=== PATIENT | male | born 1955 | race African-American/Black ===

== ENCOUNTER → 2016-11-19 | Outpatient (CLI) | payer BC ==
[~2016-11-19] MED LIST: ALBUTEROL SULFAT3 M3 IH; ALBUTEROL SULFAT8 MG; ALBUTEROL0.09 MG/A3 IH; ASPIRIN 32325 MG/TAB PO; ASPIRIN E.C. 8181 MG PO; BUDESONIDE1 POW; CETIRIZINE5 MG PO; COMBIVENT INH14.7 GM IH; DIOVAN HCT 12.51 TA2 PO; DIOVAN80 MG PO; DULERA1 AR1 IH; FORADIL; FORADIL AERO0.012 MG IH; FORTAMET500 MG PO; GLUCOPHAGE500 MG/TAB PO; HCTZ PO; KLOR-CON 1010 MEQ PO; KLOR-CON M2020 MEQ PO; NITROSTAT0.4 MG/TAB SL; NORVASC; NORVASC 10MG10 MG PO; PLAVIX 75MG TAB75 MG PO; PRAVACHOL 20MG20 MG PO; PREDNISONE10 MG PO; PRIL40 PO; PRILOSEC 20MG20 MG PO; PULMICORT180 MCG/A1 IH; ZOCOR40 MG PO
[2016-11-19 16:55] LABS: PH 5 (5-8); SQUAMOUS EPITHELIAL None Seen /hpf; URINE APPEARANCE Clear; URINE BACTERIA Rare /hpf; URINE BILIRUBIN Negative (NEGATIVE); URINE BLOOD 2+ (NEGATIVE); URINE COLOR Yellow; URINE GLUCOSE Negative (NEGATIVE); URINE KETONE Negative (NEGATIVE); URINE UROBILINOGEN Negative (NEGATIVE); URINE WBC 0-2 /hpf
== END ==
LOC: COL.LAB 15:36
PROVIDERS: Internal Medicine
DX: N30.00 Acute cystitis without hematuria (principal)
CPT/HCPCS: G0103

== ENCOUNTER → 2017-01-04 | Outpatient (CLI) | payer BC | LOC: COL.RAD 10:30 | DX: N28.1 Cyst of kidney, acquired (principal); N40.0 Benign prostatic hyperplasia without lower urinary tract symptoms | CPT/HCPCS: Q9967 ==

== ENCOUNTER → 2017-03-09 | Outpatient (CLI) | payer BC | LOC: COL.RAD 08:43 | DX: C61 Malignant neoplasm of prostate (principal); S22.32XA Fracture of one rib, left side, initial encounter for closed fracture | CPT/HCPCS: A9503 ==

== ENCOUNTER 2017-04-01 16:31 | Inpatient (IN) | payer BC ==
[~2017-04-01] VITALS: Ht 165.1 cm; Wt 57.8 kg
[~2017-04-01 16:31] MED LIST changes: -DIOVAN HCT 12.51 TA2 PO; -DULERA1 AR1 IH; -GLUCOPHAGE500 MG/TAB PO; -KLOR-CON M2020 MEQ PO; -NITROSTAT0.4 MG/TAB SL; -PRAVACHOL 20MG20 MG PO; -PRIL40 PO
[2017-04-28] VITALS (11 sets, daily range): BP systolic 90–154; BP diastolic 38–84; PULSE 54–86; TEMP 97.4–98.4
[2017-04-28] MEDS ORDERED: NORVASC 10MG10 MG PO (06:56)
[2017-04-28] MEDS ORDERED: PRAVACHOL 20MG20 MG PO (06:57)
[2017-04-28] MEDS ORDERED: DULERA1 AR1 IH (06:57)
[2017-04-28] MEDS ORDERED: KLOR-CON M2020 MEQ PO (07:10)
[2017-04-28] MEDS ORDERED: GLUCOPHAGE500 MG/TAB PO (07:10)
[2017-04-28] MEDS ORDERED: DIOVAN HCT 12.51 TA2 PO (07:10)
[2017-04-28] MEDS ORDERED: ASPIRIN E.C. 8181 MG PO (07:11)
[2017-04-28] MEDS ORDERED: PRIL40 PO (07:11)
[2017-04-28] MEDS ORDERED: NITROSTAT0.4 MG/TAB SL (07:11)
[2017-04-28 15:43] LABS: BASO % 0.1 % (0.0-2.0); EOS % 0.1 % (0-4.0); GRAN # 8.6 (1.4-6.5); GRAN % 85.6 % (42.2-75.2); HEMATOCRIT 32.5 % (42.0-52.0); HEMOGLOBIN 10.5 g/dl (13.5-18.0); LYMPH # 0.7 (1.2-3.4); LYMPH % 7.4 % (20.0-51.0); MEAN CELL VOLUME 92 fl (80.0-100.0); MEAN CORPUSCULAR HEMOGLOBIN 30 pg (27.0-31.0); MEAN CORPUSCULAR HGB CONC 32 g/dl (33.0-37.0); MONO # 0.7 (0.1-0.6); MONO % 6.7 % (1.7-9.3); PLATELET COUNT 184 K/mm3 (130-400); RED BLOOD COUNT 3.53 M/mm3 (4.20-5.60); REDCELL DISTRIBUTION WIDTH-CV 14.9 % (11.5-14.5)
[2017-04-28 16:05] LABS: CALCIUM 7.7 mg/dL (8.4-10.2); CREATININE, serum 1.28 mg/dL (0.66-1.25); POTASSIUM 3.9 mmol/L (3.4-5.0)
[2017-04-29 02:02] VITALS: BP 121/66; PULSE 72; TEMP 97.4
[2017-04-29 04:40] VITALS: BP 134/68; PULSE 84; TEMP 99.1
[2017-04-29 07:24] LABS: BASO % 0.2 % (0.0-2.0); GRAN # 8.7 (1.4-6.5); LYMPH # 0.8 (1.2-3.4); LYMPH % 8.1 % (20.0-51.0); MEAN CELL VOLUME 90 fl (80.0-100.0); MEAN CORPUSCULAR HGB CONC 33 g/dl (33.0-37.0); MONO # 0.6 (0.1-0.6); MONO % 5.5 % (1.7-9.3); PLATELET COUNT 129 K/mm3 (130-400); WHITE BLOOD COUNT 10.1 K/mm3 (4.8-10.8)
[2017-04-29 07:27] LABS: HEMOGLOBIN 9.2 g/dl (13.5-18.0); MEAN CORPUSCULAR HEMOGLOBIN 30 pg (27.0-31.0)
[2017-04-29 07:40] LABS: CALCIUM 7.4 mg/dL (8.4-10.2); CREATININE, serum 1.15 mg/dL (0.66-1.25); POTASSIUM 3.7 mmol/L (3.4-5.0)
[2017-04-29 09:23] VITALS: BP 151/66; PULSE 95; TEMP 99.7
[2017-04-29 14:02] VITALS: BP 141/69; PULSE 77; TEMP 99
[2017-04-29 17:58] VITALS: BP 122/64; PULSE 80; TEMP 98.4
[2017-04-29 21:29] VITALS: BP 134/61; PULSE 77; TEMP 98.5
[2017-04-30 01:09] VITALS: BP 136/70; PULSE 92; TEMP 99.1
[2017-04-30 05:29] VITALS: BP 138/68; PULSE 86; TEMP 99
[2017-04-30 09:39] VITALS: BP 126/53; PULSE 96; TEMP 99.1
[2017-04-30 10:29] LABS: MEAN CELL VOLUME 91 fl (80.0-100.0); MEAN CORPUSCULAR HGB CONC 32 g/dl (33.0-37.0); MEAN PLATELET VOLUME 13.9 fl (7.4-10.4); PLATELET COUNT 122 K/mm3 (130-400); RED BLOOD COUNT 2.62 M/mm3 (4.20-5.60); REDCELL DISTRIBUTION WIDTH-CV 15.2 % (11.5-14.5); WHITE BLOOD COUNT 7.2 K/mm3 (4.8-10.8)
[2017-04-30 10:30] LABS: ADD PATHOLOGY DIFF REVIEW NO; HEMATOCRIT 23.9 % (42.0-52.0); HEMOGLOBIN 7.7 g/dl (13.5-18.0); MEAN CORPUSCULAR HEMOGLOBIN 29 pg (27.0-31.0)
[2017-04-30 10:47] LABS: BAND 13 % (0-10); EOSINOPHIL 3 % (0-4); NEUTROPHILS 69 % (42.0-75.2); PLATELET ESTIMATE DECREASED (NORMAL); TOTAL CELLS COUNTED 100
[2017-04-30 14:17] VITALS: BP 129/60; PULSE 98; TEMP 98.9
[2017-04-30 17:41] VITALS: BP 145/68; PULSE 102; TEMP 99
[2017-04-30 22:00] VITALS: BP 138/81; PULSE 105; TEMP 100
[2017-05-01 02:15] VITALS: BP 114/69; BP 124/55; PULSE 106; PULSE 79; TEMP 100.3; TEMP 97.4
[2017-05-01 04:43] VITALS: BP 139/67; PULSE 95; TEMP 99.1
[2017-05-01 10:05] VITALS: BP 139/71; PULSE 107; TEMP 100
[2017-05-01 11:26] LABS: BASO % 0.2 % (0.0-2.0); EOS # 0.2 (0.0-0.7); EOS % 3.5 % (0-4.0); GRAN % 79.2 % (42.2-75.2); LYMPH # 0.7 (1.2-3.4); LYMPH % 11.7 % (20.0-51.0); MEAN CELL VOLUME 91 fl (80.0-100.0); MEAN CORPUSCULAR HGB CONC 33 g/dl (33.0-37.0); MEAN PLATELET VOLUME 12.5 fl (7.4-10.4); MONO # 0.3 (0.1-0.6); MONO % 4.8 % (1.7-9.3); PLATELET COUNT 129 K/mm3 (130-400); RED BLOOD COUNT 2.38 M/mm3 (4.20-5.60); REDCELL DISTRIBUTION WIDTH-CV 14.6 % (11.5-14.5); WHITE BLOOD COUNT 6.3 K/mm3 (4.8-10.8)
[2017-05-01 11:33] LABS: HEMATOCRIT 21.7 % (42.0-52.0); HEMOGLOBIN 7.1 g/dl (13.5-18.0); MEAN CORPUSCULAR HEMOGLOBIN 30 pg (27.0-31.0)
[2017-05-01 14:13] VITALS: BP 136/68; PULSE 99; TEMP 99.4
[2017-05-01 18:08] VITALS: BP 127/81; PULSE 106; TEMP 99.2
[2017-05-01 22:17] VITALS: BP 144/76; PULSE 116; TEMP 99
[2017-05-02] VITALS (11 sets, daily range): BP systolic 126–152; BP diastolic 66–75; PULSE 92–111; TEMP 98–100.5
[2017-05-02 07:34] LABS: MEAN CELL VOLUME 90 fl (80.0-100.0); MEAN CORPUSCULAR HGB CONC 33 g/dl (33.0-37.0); PLATELET COUNT 163 K/mm3 (130-400); RED BLOOD COUNT 2.26 M/mm3 (4.20-5.60); REDCELL DISTRIBUTION WIDTH-CV 14.7 % (11.5-14.5); WHITE BLOOD COUNT 5.3 K/mm3 (4.8-10.8)
[2017-05-02 07:37] LABS: CALCIUM 8.2 mg/dL (8.4-10.2); CREATININE, serum 1.78 mg/dL (0.66-1.25)
[2017-05-02 07:38] LABS: HEMATOCRIT 20.4 % (42.0-52.0); HEMOGLOBIN 6.7 g/dl (13.5-18.0); MEAN CORPUSCULAR HEMOGLOBIN 30 pg (27.0-31.0)
[2017-05-02 07:40] LABS: POTASSIUM 2.9 mmol/L (3.4-5.0)
[2017-05-03 02:51] VITALS: BP 125/68; PULSE 95; TEMP 98.9
[2017-05-03 05:19] VITALS: BP 134/65; PULSE 89; TEMP 98.8
[2017-05-03 07:24] LABS: MEAN CELL VOLUME 91 fl (80.0-100.0); MEAN CORPUSCULAR HGB CONC 34 g/dl (33.0-37.0); MEAN PLATELET VOLUME 10.8 fl (7.4-10.4); PLATELET COUNT 176 K/mm3 (130-400); RED BLOOD COUNT 2.77 M/mm3 (4.20-5.60); REDCELL DISTRIBUTION WIDTH-CV 14.5 % (11.5-14.5); WHITE BLOOD COUNT 6.4 K/mm3 (4.8-10.8)
[2017-05-03 07:25] LABS: HEMATOCRIT 25.2 % (42.0-52.0); HEMOGLOBIN 8.5 g/dl (13.5-18.0); MEAN CORPUSCULAR HEMOGLOBIN 31 pg (27.0-31.0)
[2017-05-03 07:40] LABS: CALCIUM 8.4 mg/dL (8.4-10.2); CREATININE, serum 2.14 mg/dL (0.66-1.25); POTASSIUM 3.5 mmol/L (3.4-5.0)
[2017-05-03 09:28] VITALS: BP 124/71; PULSE 59; TEMP 99
[2017-05-03 14:20] VITALS: BP 138/73; PULSE 95; TEMP 98.2; TEMP 99.7
[2017-05-03 17:43] VITALS: BP 134/69; PULSE 102; TEMP 97.9
[2017-05-03 21:59] VITALS: BP 143/74; PULSE 94; TEMP 98
[2017-05-04 05:45] VITALS: BP 126/72; PULSE 78; TEMP 99.2
[2017-05-04 06:53] LABS: HEMATOCRIT 24.6 % (42.0-52.0); HEMOGLOBIN 8.1 g/dl (13.5-18.0); MEAN CELL VOLUME 90 fl (80.0-100.0); MEAN CORPUSCULAR HEMOGLOBIN 30 pg (27.0-31.0); MEAN CORPUSCULAR HGB CONC 33 g/dl (33.0-37.0); MEAN PLATELET VOLUME 11.3 fl (7.4-10.4); PLATELET COUNT 197 K/mm3 (130-400); RED BLOOD COUNT 2.72 M/mm3 (4.20-5.60); REDCELL DISTRIBUTION WIDTH-CV 14.6 % (11.5-14.5); WHITE BLOOD COUNT 7.4 K/mm3 (4.8-10.8)
[2017-05-04 07:06] LABS: CALCIUM 8.7 mg/dL (8.4-10.2); CREATININE, serum 1.51 mg/dL (0.66-1.25)
[2017-05-04 07:08] LABS: POTASSIUM 2.9 mmol/L (3.4-5.0)
[2017-05-04 09:16] VITALS: BP 128/69; PULSE 95
[2017-05-04 14:02] VITALS: BP 134/76; PULSE 98; TEMP 98.3
[2017-05-04 17:31] VITALS: BP 126/67; PULSE 82; TEMP 98.7
[2017-05-04 21:01] VITALS: BP 124/71; BP 142/71; PULSE 93; TEMP 99.8
[2017-05-05 01:49] VITALS: BP 121/67; PULSE 72; TEMP 98.1
[2017-05-05 06:07] VITALS: BP 130/60; PULSE 85; TEMP 98.6
[2017-05-05 09:56] VITALS: BP 123/59; PULSE 84; TEMP 98.2
[2017-05-05 14:11] VITALS: BP 154/72; PULSE 86
[2017-05-05 18:02] VITALS: BP 124/61; PULSE 80; TEMP 98.5
[2017-05-05 22:51] VITALS: BP 126/70; PULSE 94; TEMP 100.6
[2017-05-06] VITALS (15 sets, daily range): BP systolic 119–152; BP diastolic 62–78; PULSE 66–101; TEMP 97.5–99.5
[2017-05-06 07:36] LABS: CALCIUM 8.6 mg/dL (8.4-10.2); CREATININE, serum 1.01 mg/dL (0.66-1.25); MAGNESIUM 1.8 mg/dL (1.6-2.3); POTASSIUM 3.7 mmol/L (3.4-5.0)
[2017-05-06 14:44] LABS: PH 7 (5-8); SQUAMOUS EPITHELIAL 0-2 /hpf; URINE APPEARANCE Hazy; URINE BACTERIA Rare /hpf; URINE BILIRUBIN Negative (NEGATIVE); URINE BLOOD 3+ (NEGATIVE); URINE COLOR Red; URINE GLUCOSE Negative (NEGATIVE); URINE KETONE Trace (NEGATIVE); URINE RBC >50 /hpf; URINE UROBILINOGEN Negative (NEGATIVE)
[2017-05-06 14:50] LABS: URINE WBC >50 /hpf
[2017-05-07 01:14] VITALS: BP 125/63; PULSE 100; TEMP 98.8
[2017-05-07 04:48] VITALS: BP 126/48; PULSE 94; TEMP 99.1
[2017-05-07 10:27] VITALS: BP 122/57; PULSE 96; TEMP 97.5
[2017-05-07 14:35] VITALS: BP 142/59; PULSE 99; TEMP 99.3
[2017-05-07 18:40] VITALS: BP 133/58; PULSE 93; TEMP 98.3
[2017-05-07 22:00] VITALS: BP 127/67; PULSE 89; TEMP 98.7
[2017-05-08 01:31] VITALS: BP 117/56; PULSE 83; TEMP 99.7
[2017-05-08 06:09] VITALS: BP 127/62; PULSE 83; TEMP 97.6
[2017-05-08 09:04] VITALS: BP 146/88; PULSE 93; TEMP 98.5
[2017-05-08 14:45] VITALS: BP 115/66; PULSE 98; TEMP 99.8
[2017-05-08 18:01] VITALS: BP 145/68; PULSE 92; TEMP 98.6
[2017-05-08 20:38] VITALS: BP 142/81; PULSE 87; TEMP 99.8
[2017-05-09 00:47] VITALS: BP 141/78; PULSE 86; TEMP 99.2
[2017-05-09 04:53] VITALS: BP 119/62; PULSE 88; TEMP 99.8
[2017-05-09 09:12] VITALS: BP 133/67; PULSE 71; TEMP 98.2
[2017-05-09 12:41] VITALS: BP 136/67; PULSE 85; TEMP 98.7
[2017-05-09 17:26] VITALS: BP 126/66; PULSE 75; TEMP 98.8
[2017-05-09 22:02] VITALS: BP 131/65; PULSE 80; TEMP 98.4
[2017-05-10 01:32] VITALS: BP 111/64; PULSE 73; TEMP 98.4
[2017-05-10 05:16] VITALS: BP 90/44; PULSE 71; TEMP 98.5
[2017-05-10 09:30] VITALS: BP 114/70
[2017-05-10 09:40] VITALS: BP 124/54; PULSE 78; TEMP 98.6
[2017-05-10 13:29] VITALS: BP 118/66; PULSE 54; TEMP 99.3
== END 2017-05-10 17:50 | disposition home or self-care (01) | DRG 707 ==
LOC: SURG 04-28 05:35 → INPTSU 04-28 05:35 → SURG 04-28 07:30 → JCC 04-28 14:30 → SURG 05-02 22:50
PROVIDERS: Surgery; Urology
PROC: 07BC4ZX Excision of Pelvis Lymphatic, Percutaneous Endoscopic Approach, Diagnostic (ICD-10-PCS; 2017-04-28)
PROC: 8E0W4CZ Robotic Assisted Procedure of Trunk Region, Percutaneous Endoscopic Approach (ICD-10-PCS; 2017-04-28)
PROC: 0DQP4ZZ Repair Rectum, Percutaneous Endoscopic Approach (ICD-10-PCS; 2017-04-28)
PROC: 0VT04ZZ Resection of Prostate, Percutaneous Endoscopic Approach (ICD-10-PCS; principal; 2017-04-28 07:30)
PROC: 0W9J3ZX Drainage of Pelvic Cavity, Percutaneous Approach, Diagnostic (ICD-10-PCS; 2017-05-06)
DX: C61 Malignant neoplasm of prostate (principal); K91.71 Accidental puncture and laceration of a digestive system organ or structure during a digestive system procedure; K91.3 Postprocedural intestinal obstruction; N99.842 Postprocedural seroma of a genitourinary system organ or structure following a genitourinary system procedure; E11.9 Type 2 diabetes mellitus without complications; I10 Essential (primary) hypertension; J45.909 Unspecified asthma, uncomplicated; Z95.5 Presence of coronary angioplasty implant and graft; K21.9 Gastro-esophageal reflux disease without esophagitis; D50.0 Iron deficiency anemia secondary to blood loss (chronic); E87.6 Hypokalemia
CPT/HCPCS: A9284; C1713; C9113; J0690; J0694; J1100; J1170; J1644; J1885; J1940; J1956; J2250; J2405; J2543; J2704; J2710; J3010; J3480; J7030; J7050; P9016; Q9967

== ENCOUNTER → 2017-05-18 | Outpatient (CLI) | payer BC ==
[~2017-05-18] MED LIST changes: +DIOVAN HCT 12.51 TA2 PO; +DULERA1 AR1 IH; +GLUCOPHAGE500 MG/TAB PO; +KLOR-CON M2020 MEQ PO; +NITROSTAT0.4 MG/TAB SL; +PRAVACHOL 20MG20 MG PO; +PRIL40 PO
== END ==
LOC: COL.RAD 10:59
DX: N99.71 Accidental puncture and laceration of a genitourinary system organ or structure during a genitourinary system procedure (principal)
CPT/HCPCS: Q9967

== ENCOUNTER → 2017-06-01 | Outpatient (CLI) | payer BC | LOC: COL.RAD 07:33 | DX: N99.71 Accidental puncture and laceration of a genitourinary system organ or structure during a genitourinary system procedure (principal) | CPT/HCPCS: Q9967 ==

== ENCOUNTER → 2017-10-14 | Outpatient (CLI) | payer BC ==
[2017-10-14 11:04] LABS: CALCIUM 9.4 mg/dL (8.4-10.2); CREATININE, serum 0.94 mg/dL (0.66-1.25); MAGNESIUM 1.9 mg/dL (1.6-2.3); POTASSIUM 3.9 mmol/L (3.4-5.0)
[2017-10-14 11:54] LABS: THYROID STIMULATING HORMONE 1.49 uIU/mL (0.465-4.680)
== END ==
LOC: COL.LAB 09:57
PROVIDERS: Internal Medicine
DX: R20.2 Paresthesia of skin (principal)

== ENCOUNTER → 2017-11-17 | Outpatient (CLI) | payer BC | LOC: COL.LAB 13:17 | DX: Z01.89 Encounter for other specified special examinations (principal) ==

== ENCOUNTER → 2017-11-17 | Outpatient (CLI) | payer BC ==
[2017-11-17 23:52] LABS: TESTOSTERONE, TOTAL 683 ng/dL (221-716)
[2017-11-18 11:18] LABS: RPR (VDRL) Non-reactive (())
[2017-11-19 12:48] LABS: LYME DISEASE ANTIBODIES Negative (Negative)
[2017-11-19 13:08] LABS: CADMIUM BLOOD 0.3 ng/mL (0.0-4.9); MERCURY,SERUM 7 ng/mL (0-9)
== END ==
LOC: COL.LAB 09:58
PROVIDERS: Psychiatry & Neurology Neurology
DX: G58.8 Other specified mononeuropathies (principal); R20.2 Paresthesia of skin

== ENCOUNTER → 2018-12-05 | Outpatient (REF) | LOC: ZLAB.WCH 16:07 | DX: Z01.89 Encounter for other specified special examinations (principal) ==

== ENCOUNTER → 2023-03-04 | Outpatient (CLI) | payer MEDICARE ==
[~2023-03-04] MED LIST changes: +NEURONTIN300 MG/CAP PO; +NEURONTIN600 MG/TAB PO; +PROTONIX 40MG T40 MG PO
== END ==
LOC: COL.RAD 13:51
DX: R55 Syncope and collapse (principal)
CPT/HCPCS: A9575

== ENCOUNTER 2024-05-01 16:59 | Inpatient (IN) | payer MEDICARE ==
[2024-05-01] VITALS (87 sets, daily range): BP systolic 126; BP diastolic 92; PULSE 81; TEMP 97.8; O2SAT 91–100
[~2024-05-01] VITALS: Ht 165.1 cm; Wt 54.0 kg
[2024-05-01 17:12] LABS: BASO % 0.3 % (0.0-2.0); EOS # 0.6 K/mm3 (0.0-0.7); EOS % 8.6 % (0.0-4.0); GRAN # 3.4 K/mm3 (1.4-6.5); GRAN % 46.8 % (42.2-75.2); HEMATOCRIT 46.9 % (42.0-52.0); HEMOGLOBIN 14.8 g/dl (13.5-18.0); LYMPH # 2.8 K/mm3 (1.2-3.4); LYMPH % 38.6 % (20.0-51.0); MEAN CELL VOLUME 87 fl (80.0-100.0); MEAN CORPUSCULAR HEMOGLOBIN 28 pg (27-31); MEAN CORPUSCULAR HGB CONC 32 g/dl (33.0-37.0); MEAN PLATELET VOLUME 11.9 fl (7.4-10.4); MONO # 0.4 K/mm3 (0.1-0.6); MONO % 5.6 % (1.7-9.3); PLATELET COUNT 233 K/mm3 (130-400); RED BLOOD COUNT 5.38 M/mm3 (4.20-5.60); REDCELL DISTRIBUTION WIDTH-CV 17.2 % (11.5-14.5)
[2024-05-01] MEDS ORDERED: Albuterol/Ipratropium 3 MG-0.5 MG/3 ML Neb Soln IH ONE (17:15)
[2024-05-01] MEDS ORDERED: Albuterol 0.083% Neb Soln 2.5 MG/3 ML UD IH ONE (17:15)
[2024-05-01 17:26] LABS: ARTERIAL BLD GAS O2 SATURATION 87.2 % (92-100); ARTERIAL BLD GAS TCO2 CT 31.3; ARTERIAL BLOOD GAS BASE EXCESS 2.7 (-2-2); ARTERIAL BLOOD GAS HCO3 29.6 meq/L (22-26); ARTERIAL BLOOD GAS PCO2 54.7 mmHg (35-45); ARTERIAL BLOOD GAS PO2 59.5 mmHg (80-100); ARTERIAL BLOOD GAS pH 7.35 (7.35-7.45)
[2024-05-01 17:29] LABS: ALBUMIN 4.7 g/dL (3.4-4.8); BILIRUBIN,TOTAL 0.5 mg/dL (0.2-1.2); C-REACTIVE PROTEIN 0.18 mg/dL (0.00-0.50); CREATININE, serum 2.49 mg/dL (0.72-1.25); POTASSIUM 4.6 mEq/L (3.5-4.5); TOTAL PROTEIN 9.1 g/dl (6.2-8.1)
[2024-05-01 17:37] LABS: TROPONIN-I 0.019 ng/mL (0.00-0.033)
[2024-05-01 17:51] LABS: URINE APPEARANCE CLEAR (CLEAR/HAZY); URINE BLOOD 2+ (NEGATIVE); URINE COLOR YELLOW (YELLOW); URINE GLUCOSE NEGATIVE (NEGATIVE); URINE KETONE NEGATIVE (NEGATIVE); URINE NITRATE NEGATIVE (NEGATIVE); URINE PROTEIN(semi-quant) 4+ (NEGATIVE); URINE UROBILINOGEN 0.2 E.U/dL (0.2-1.0)
[2024-05-01 18:01] LABS: COLLECTION METHOD CLEAN CATCH
[2024-05-01] MEDS ORDERED: Albuterol/Ipratropium 3 MG-0.5 MG/3 ML Neb Soln IH PRN (18:30)
[2024-05-01] MEDS ORDERED: dexAMETHasone 10 MG/ML VIAL IV ONE (18:30)
[2024-05-01] MEDS ORDERED: cefTRIAXone 1 G in Water For Injection,Sterile 10 ML IV SCH (18:45)
[2024-05-01] MEDS ORDERED: K-DUR20 MEQ PO (18:54)
[2024-05-01] MEDS ORDERED: CRESTOR 10MG10 MG PO (18:54)
[2024-05-01] MEDS ORDERED: DIOVAN/HCT 12.51 TAB PO (18:54)
[2024-05-01] MEDS ORDERED: CYMBALTA 60MG60 MG PO (18:55)
[2024-05-01] MEDS ORDERED: 00186-0370-20 IH (18:55)
[2024-05-01] MEDS ORDERED: PROAIR HFA0.09 MG/AC IH (18:55)
[2024-05-01] MEDS ORDERED: Acetaminophen 325 MG TAB PO PRN (19:00)
[2024-05-01] MEDS ORDERED: Formoterol 20 MCG,Budesonide 0.5 MG IH SCH (19:00)
[2024-05-01] MEDS ORDERED: NS 1,000 ML IV SCH (19:00)
--- NOTE | 2024-05-01 20:15 | NUR ---
PT ARRIVED FROM ED VIA STRETCHER. MOVED TO ICU BED AND CONNECTED TO MONITORING. MOVED OVER ON BIPAP, HOWEVER RT IN ROOM WITH PT AND MOVED TO 4L NC AT THIS TIME SO CELIO CADE APRN CAN COMPLETE ADMISSION (IN ROOM WITH PT). PT TOLERATING O2 VIA NC WELL AND MAINTAINING PULSE OXIMETRY OVER 97%. NOTED WHEEZING TO ALL LUNG CASTILLO, BUT PT DENIES ANY IMMEDIATE DISTRESS.
[2024-05-01] MEDS ORDERED: ANTIVERT 25MG25 MG PO (20:32)
[2024-05-01] MEDS ORDERED: XALATAN EYE DROPS OU (20:32)
[2024-05-01] MEDS ORDERED: Meclizine 25 MG TAB PO PRN (20:45)
[2024-05-01] MEDS ORDERED: Latanoprost 0.005% Ophth Soln 2.5 ML BOTTLE OP SCH (21:00)
[2024-05-01] MEDS ORDERED: Rosuvastatin 10 MG **** subs to Atorvastatin 20 MG PO SCH (21:00)
--- NOTE | 2024-05-01 22:48 | NUR ---
PT RESTING AT THIS TIME ON BIPAP AT 35% FIO2, TOLERATING WELL. REPORTS NO NEEDS OR COMPLAINTS.
[2024-05-02] VITALS (429 sets, daily range): BP systolic 106–166; BP diastolic 76–93; PULSE 77–99; TEMP 97.5–98.4; O2SAT 90–100
[2024-05-02] MEDS ORDERED: Insulin Lispro (HumaLOG) SQ SCH
[2024-05-02 04:52] LABS: EOS % 0.2 % (0.0-4.0); GRAN # 3.9 K/mm3 (1.4-6.5); GRAN % 79.2 % (42.2-75.2); LYMPH % 19.6 % (20.0-51.0); MEAN CELL VOLUME 84 fl (80.0-100.0); MEAN CORPUSCULAR HGB CONC 32 g/dl (33.0-37.0); MEAN PLATELET VOLUME 11.8 fl (7.4-10.4); MONO % 0.8 % (1.7-9.3); PLATELET COUNT 177 K/mm3 (130-400); RED BLOOD COUNT 4.41 M/mm3 (4.20-5.60); REDCELL DISTRIBUTION WIDTH-CV 16.8 % (11.5-14.5)
[2024-05-02 04:55] LABS: HEMATOCRIT 36.9 % (42.0-52.0); HEMOGLOBIN 11.8 g/dl (13.5-18.0); MEAN CORPUSCULAR HEMOGLOBIN 27 pg (27-31)
[2024-05-02 05:05] LABS: CALCIUM 8.5 mg/dL (8.4-10.2); CREATININE, serum 2.49 mg/dL (0.72-1.25); POTASSIUM 4.9 mEq/L (3.5-4.5)
--- NOTE | 2024-05-02 07:00 | NUR ---
REPORT RECEIVED FROM ZO TAYLOR. PT RESTING IN BED, VSS ON ROOM AIR. NS INFUSING TO PERIPHERAL IV ORDERED. PT IS ALERT AND ORIENTED, USES CALL LIGHT FOR NEEDS.
[2024-05-02] MEDS ORDERED: dexAMETHasone 10 MG/ML VIAL IV SCH (08:00)
[2024-05-02] MEDS ORDERED: DULoxetine 60 MG CAP PO SCH (09:00)
[2024-05-02] MEDS ORDERED: Pantoprazole 40 MG in NS 10 ML IV SCH (09:00)
--- NOTE | 2024-05-02 09:05 | NUR ---
pattern layout worker met with pt to discuss discharge planning. He reports to live alone in [place]. He sees Dr. Casper for PCP needs and obtains medications from [facility] with difficulties. He reports to not have a secondary insurance and was interested in medicaid insurance. SW advised she will inform the financial advisors to meet with him. SW informed him to talk with his PCP about coupons/samples and switching his medications to the $4 list. Pt verbalized understanding of this. He reports to be independent with ADLS and uses no DME. He does not have a DPOA-HC, but reports his friend Hamliton [phone] is his contact. Pt informs SW he has a son, Devin Haq in [place] and a sister, Ness Toure in [facility]. He does not have their numbers, but reports his friend, Hamilton can help reach them. Pt reports he will look into the DPOA-HC when SW advised his son was [place]. SW informed him that he can talk with his PCP about this further if he wants to complete it later. He had no further concerns. BRYANT informed Entry Level Sales Associate, Lukas via voicemail to meet with pt regarding medicaid tiki. Marcelino called back and stated she will do this. BRYANT informed ZO Licona of [place] information. Discharge Plan: home
[2024-05-02 09:28] LABS: ARTERIAL BLD GAS O2 SATURATION 92.7 % (92-100); ARTERIAL BLD GAS TCO2 CT 26.9; ARTERIAL BLOOD GAS HCO3 25.8 meq/L (22-26); ARTERIAL BLOOD GAS PCO2 37.4 mmHg (35-45); ARTERIAL BLOOD GAS PO2 62.3 mmHg (80-100); ARTERIAL BLOOD GAS pH 7.46 (7.35-7.45)
--- NOTE | 2024-05-02 12:00 | NUR ---
Pt arrived to medical floor from ICU by wheelchair. Home medications, pharmacy, and allergies reviewed. Pt A&O x4. Assessment completed. Oriented pt to room, call light, and bathroom. Pt has no request at this time. Call light within reach.
--- NOTE | 2024-05-02 13:25 | NUR ---
Data: Patient accepted spiritual care visit while in ICU4 during Dance Choreographer rounds. Assessment: Patient desired prayer. Plan of Care: Dance Choreographer offered a prayer for healing. Patient thanked Dance Choreographer for the prayer. Chaplains will remain available as needed/requested while Patient is admitted to this hospital.
[2024-05-02] MEDS ORDERED: Ipratropium 0.02% Neb Soln 0.5 MG/2.5 ML UD IH SCH (14:00)
--- NOTE | 2024-05-02 15:22 | NUR ---
ordnance equipment worker was informed by Curtain Framer, Marcelino that pt does not qualify for Medicaid.
[2024-05-02] MEDS ORDERED: Sodium Bicarbonate/Water,Steri 1,150 ML IV SCH (19:30)
[2024-05-02] MEDS ORDERED: Atorvastatin 20 MG TAB PO SCH (21:00)
[2024-05-03] VITALS (13 sets, daily range): BP systolic 104–166; BP diastolic 72–87; PULSE 63–84; TEMP 97.5–98.2
[2024-05-03 06:38] LABS: GRAN # 7.8 K/mm3 (1.4-6.5); GRAN % 81.8 % (42.2-75.2); HEMOGLOBIN 11.8 g/dl (13.5-18.0); LYMPH % 10.5 % (20.0-51.0); MEAN CELL VOLUME 82 fl (80.0-100.0); MEAN CORPUSCULAR HEMOGLOBIN 27 pg (27-31); MEAN CORPUSCULAR HGB CONC 33 g/dl (33.0-37.0); MONO # 0.7 K/mm3 (0.1-0.6); MONO % 7.3 % (1.7-9.3); PLATELET COUNT 144 K/mm3 (130-400); RED BLOOD COUNT 4.42 M/mm3 (4.20-5.60)
[2024-05-03 06:39] LABS: HEMATOCRIT 36.3 % (42.0-52.0)
[2024-05-03 06:50] LABS: CALCIUM 9.5 mg/dL (8.4-10.2); CREATININE, serum 2.02 mg/dL (0.72-1.25); POTASSIUM 4.1 mEq/L (3.5-4.5)
[2024-05-03 06:57] LABS: PH 7.5 (5.0-8.5); URINE APPEARANCE CLEAR (CLEAR/HAZY); URINE BLOOD 2+ (NEGATIVE); URINE COLOR YELLOW (YELLOW); URINE GLUCOSE NEGATIVE (NEGATIVE); URINE KETONE NEGATIVE (NEGATIVE); URINE NITRATE NEGATIVE (NEGATIVE); URINE PROTEIN(semi-quant) TRACE (NEGATIVE); URINE UROBILINOGEN 0.2 E.U/dL (0.2-1.0)
[2024-05-03 07:05] LABS: COLLECTION METHOD CLEAN CATCH
[2024-05-03] MEDS ORDERED: Glucagon 1 MG VIAL IM PRN (07:30)
[2024-05-03] MEDS ORDERED: Dextrose 50% Water 25 GM/50 ML SYRINGE IV PRN (07:30)
[2024-05-03] MEDS ORDERED: Dextrose (Glucose) 15 GM (4 x 3.75 GM) Chewable TABLET PACK PO PRN (07:30)
--- NOTE | 2024-05-03 07:30 | NUR ---
Bedside report received from ZO Springer. Pt resting in bed with no complaints. Call light within reach.
[2024-05-03] MEDS ORDERED: predniSONE 20 MG TAB PO SCH (08:00)
--- NOTE | 2024-05-03 08:30 | NUR ---
Pt resting in bed with eyes closed, pt awakens to voice and touch. Shift assessment completed. Pt A&O x4. VSS. This nurse offered to assist pt to recliner to eat breakfast. Pt refused breakfast and stated he wanted to rest in bed for longer. Pt denies pain rating 0/10. Wheezing during inspiration and expiration noted in all lung fisher upon ausculation. Pt has no request at this time. Call light within reach.
[2024-05-03] MEDS ORDERED: amLODIPine 10 MG TAB PO SCH ×2 (09:00→12:18)
--- NOTE | 2024-05-03 20:35 | NUR ---
Initial shift assessment done- did just have a respiratory treatment- states he was wheezy before the treatment but lungs are clear at this time, o2 sats RA at 92%, No requests, denies need for a snack, did take a walk in the mark with the nurse. VSS.
[2024-05-04 01:00] VITALS: BP_SYST 142
[2024-05-04 03:08] VITALS: BP 133/72; PULSE 73; TEMP 98
[2024-05-04 05:38] VITALS: BP_SYST 133
--- NOTE | 2024-05-04 05:51 | NUR ---
Quiet night- did get a few hours of sleep- no requests. VSS. Blood sugars 138 at MN and 128 this morning.
[2024-05-04 06:48] LABS: EOS % 0.2 % (0.0-4.0); GRAN # 4.9 K/mm3 (1.4-6.5); GRAN % 76.1 % (42.2-75.2); HEMATOCRIT 38.9 % (42.0-52.0); LYMPH # 1.1 K/mm3 (1.2-3.4); LYMPH % 17.2 % (20.0-51.0); MEAN CELL VOLUME 80 fl (80.0-100.0); MEAN CORPUSCULAR HEMOGLOBIN 27 pg (27-31); MEAN CORPUSCULAR HGB CONC 33 g/dl (33.0-37.0); MONO # 0.4 K/mm3 (0.1-0.6); PLATELET COUNT 158 K/mm3 (130-400); RED BLOOD COUNT 4.88 M/mm3 (4.20-5.60); REDCELL DISTRIBUTION WIDTH-CV 16.4 % (11.5-14.5)
[2024-05-04 07:04] LABS: CALCIUM 9.4 mg/dL (8.4-10.2); CREATININE, serum 2.19 mg/dL (0.72-1.25); POTASSIUM 3.6 mEq/L (3.5-4.5)
[2024-05-04 07:11] VITALS: BP 147/79; PULSE 96; TEMP 97.7
[2024-05-04 09:02] VITALS: BP_SYST 147
[2024-05-04] MEDS ORDERED: Albuterol 90 MCG/PUFF 8 GM MDI IH PRN (09:15)
[2024-05-04] MEDS ORDERED: Fosfomycin 3 G PACKET PO ONE (09:45)
[2024-05-04] MEDS ORDERED: 00186-0370-20 IH (10:39)
[2024-05-04] MEDS ORDERED: SPIRIVA RE2.5 MCG/Ac IH (10:40)
[2024-05-04] MEDS ORDERED: PREDNISONE20 MG PO (11:10)
--- NOTE | 2024-05-04 11:41 | NUR ---
PATIENT GIVEN DISCHARGE INSTRUCTIONS AND EDUCATION. PATIENT DENIES ANY NEEDS OR COMPLAINTS AT THIS TIME. IVS REMOVED.
--- NOTE | 2024-05-04 11:47 | NUR ---
PATIENT TAKEN VIA WHEELCHAIR TO ER ENTRANCE TO AWAIT UBER POP SINGER. PCT WITH PATIENT
--- NOTE | 2024-05-04 11:55 | NUR ---
PATIENT PICKED UP BY [facility]. PATIENT LEFT IN STABLE CODNITION
--- NOTE | 2024-05-04 13:04 | NUR ---
Ward Helper was approached by Hospitalist who advised patient may have trouble affording his inhalers. BRYANT spoke with Jojo, Pharmacist who met with patient and provided a rescue inhaler and also discussed refilling his prescription at his regular pharmacy. BRYANT followed up with patient who advised he should not have any difficulties getting his inhaler. BRYANT presented and reviewed IM form with patient who verbalized understanding and provided signature. BRYANT placed form in chart and provided copy to patient. Patient did not have transportation home so BRYANT scheduled an Uber on his behalf. Discharge Plan: Home
[2024-05-05 18:29] LABS: C-ANCA 78 U/mL (0-99)
== END 2024-05-04 12:00 | disposition home or self-care (01) | DRG 871 ==
LOC: COL.ER 16:59 → MEDICAL 19:23 → ICU 19:23 → MEDICAL 05-02 12:33
PROVIDERS: Emergency Medicine; Internal Medicine Nephrology; Internal Medicine Pulmonary Disease; Nurse Practitioner Family; ADMIT Internal Medicine
PROC: 5A09357 Assistance with Respiratory Ventilation, Less than 24 Consecutive Hours, Continuous Positive Airway Pressure (ICD-10-PCS; principal; 2024-05-01)
DX: A41.9 Sepsis, unspecified organism (principal); J96.01 Acute respiratory failure with hypoxia; J96.02 Acute respiratory failure with hypercapnia; N17.9 Acute kidney failure, unspecified; I13.0 Hypertensive heart and chronic kidney disease with heart failure and stage 1 through stage 4 chronic kidney disease, or unspecified chronic kidney disease; J45.41 Moderate persistent asthma with (acute) exacerbation; I25.10 Atherosclerotic heart disease of native coronary artery without angina pectoris; E78.5 Hyperlipidemia, unspecified; H81.10 Benign paroxysmal vertigo, unspecified ear; Z20.822 Contact with and (suspected) exposure to COVID-19; E87.5 Hyperkalemia; E11.22 Type 2 diabetes mellitus with diabetic chronic kidney disease; B96.1 Klebsiella pneumoniae [K. pneumoniae] as the cause of diseases classified elsewhere; N18.9 Chronic kidney disease, unspecified; I50.9 Heart failure, unspecified; Z95.5 Presence of coronary angioplasty implant and graft; Z88.8 Allergy status to other drugs, medicaments and biological substances; Z85.46 Personal history of malignant neoplasm of prostate; Z87.440 Personal history of urinary (tract) infections; Z79.82 Long term (current) use of aspirin; Z79.899 Other long term (current) drug therapy; Z79.84 Long term (current) use of oral hypoglycemic drugs
CPT/HCPCS: J0696; J1100; J1650; J7030; J7512; Q3014